=== PATIENT | female | born 1960 | race African-American/Black ===

== ENCOUNTER 2017-08-14 16:12 | Emergency (ER) | payer MEDICAID, OTHER ==
[~2017-08-14] VITALS: Ht 165.1 cm; Wt 75.0 kg
[2017-08-14] MEDS ORDERED: SODIUM CHLORIDE 0.9% 1,000 ML IV ONE (20:24)
[2017-08-14] MEDS ORDERED: KETOROLAC 30MG/ML VIAL IV ONE (20:30)
[2017-08-14 21:18] LABS: CLARITY URINE CLEAR (CLEAR); COLOR URINE YELLOW (YELLOW); KETONES URINE NEGATIVE (NEGATIVE); LEUKOCYTE ESTERASE URINE 2+ (NEGATIVE); NITRITE URINE NEGATIVE (NEGATIVE); OCCULT BLOOD URINE TRACE (NEGATIVE); PROTEIN URINE NEGATIVE (NEGATIVE); SPECIFIC GRAVITY URINE 1.012 (1.005-1.030)
[2017-08-14 21:21] LABS: HEMOGLOBIN. 11.1 g/dL (12.0-16.0); MEAN CORPUSCULAR HEMOGLOBIN 22.6 pg (28.0-32.0); MEAN CORPUSCULAR VOLUME 71.2 fL (81.0-99.0); MEAN PLATELET VOLUME 10.7 fl (7.4-10.4); PLATELET 146 x1000/uL (130-400); RED BLOOD CELL COUNT 4.91 mill/uL (4.2-5.4); RED CELL DISTRIBUTION WIDTH 12.6 % (11.6-14.6)
[2017-08-14 21:40] LABS: CARBON DIOXIDE 30 mEq/L (21-32); CHLORIDE 104 mEq/L (98-107)
[2017-08-14 21:57] LABS: ATYPICAL LYMPHOCYTES 2; PLATELET ESTIMATE NORMAL
[2017-08-14 23:08] LABS: INR 1.1; PROTHROMBIN TIME 11.4 sec (9.4-11.6)
[2017-08-15 00:53] VITALS: BP 135/76
== END 2017-08-15 01:36 | disposition home or self-care (01) ==
LOC: ER 16:42
DX: B34.9 Viral infection, unspecified (principal); N39.0 Urinary tract infection, site not specified; Z85.72 Personal history of non-Hodgkin lymphomas; Z90.49 Acquired absence of other specified parts of digestive tract; Z88.0 Allergy status to penicillin
CPT/HCPCS: 36415; 71045; 80053; 81001; 85025; 85610; 87804; 96361; 96374; 99285; J1885; J7030

== ENCOUNTER 2019-01-03 23:11 | Inpatient (IN) | payer MEDICAID ==
[~2019-01-03] VITALS: Ht 165.1 cm; Wt 74.4 kg
[2019-01-04] MEDS ORDERED: ONDANSETRON HCL 4MG/2ML INJ IV STA (00:15)
[2019-01-04] MEDS ORDERED: ASPIRIN 81MG TABLET PO ONE (00:15)
[2019-01-04] MEDS ORDERED: MORPHINE SULFATE 4 MG/ML CPJ (NOT FOR IM USE) IV STA (00:15)
[2019-01-04] MEDS ORDERED: NITROGLYCERIN OINT 1GM/INCH UDPKT TD ONE (00:15)
[2019-01-04 00:27] LABS: BASOPHILS % 0.6 % (0.0-2.0); EOSINOPHILS % 2.4 % (0.0-5.0); HEMATOCRIT. 33.3 % (36.0-48.0); HEMOGLOBIN. 10.9 g/dL (12.0-16.0); LYMPHOCYTES % 44.7 % (20.0-50.0); MEAN CORPUSCULAR HEMOGLOBIN 23.2 pg (28.0-32.0); MEAN CORPUSCULAR VOLUME 71.1 fL (81.0-99.0); MEAN PLATELET VOLUME 10.9 fl (7.4-10.4); MONOCYTES % 10.4 % (2.0-8.0); NEUTROPHILS % 41.9 % (40.0-76.0); PLATELET 164 x1000/uL (130-400); RED BLOOD CELL COUNT 4.68 mill/uL (4.2-5.4); RED CELL DISTRIBUTION WIDTH 12.5 % (11.6-14.6)
[2019-01-04 00:33] LABS: CHLORIDE 112 mEq/L (98-107)
[2019-01-04] MEDS ORDERED: IOHEXOL-350 100 ML BOTTLE ONE (02:07)
[2019-01-04 12:00] VITALS: BP 103/62
[2019-01-04 12:20] VITALS: BP 103/62
[2019-01-04] MEDS ORDERED: ATOR20TA65 PO (13:22)
[2019-01-04] MEDS ORDERED: NITR0.4T49 SL (13:23)
[2019-01-04 16:00] VITALS: BP 115/71
[2019-01-04] MEDS ORDERED: LORAZEPAM 0.5MG TABLET PO PRN (16:00)
[2019-01-04] MEDS ORDERED: IPRATROPIUM/ALBUTEROL 0.5-3(2.5)MG/3ML NEB INH PRN (16:00)
[2019-01-04] MEDS ORDERED: CLONIDINE 0.1MG TABLET PO PRN (16:00)
[2019-01-04] MEDS ORDERED: ONDANSETRON HCL 4MG/2ML INJ IV PRN (16:00)
[2019-01-04] MEDS ORDERED: DOCUSATE SODIUM 100MG CAPSULE PO PRN (16:00)
[2019-01-04] MEDS ORDERED: ACETAMINOPHEN 325MG TABLET PO PRN (16:00)
[2019-01-04] MEDS ORDERED: HYDROCODONE/ACETAMINOPHEN 5/325MG TABLET PO PRN (16:00)
[2019-01-04] MEDS ORDERED: POTASSIUM CHLORIDE 20MEQ TABLET SR PO NR (16:30)
[2019-01-04 20:00] VITALS: BP 100/60
[2019-01-04 20:58] LABS: TOTAL IRON BINDING CAPACITY 263 ug/dL (250-450)
[2019-01-04] MEDS ORDERED: ATORVASTATIN CALCIUM 20MG TABLET PO SCH (21:00)
[2019-01-04 21:01] LABS: CREATINE KINASE 63 IU/L (26-192)
[2019-01-04 21:02] LABS: CREATINE KINASE MB FRACTION < 1.0 ng/mL (0.5-3.6)
[2019-01-05] VITALS (11 sets, daily range): BP systolic 98–144; BP diastolic 47–91
[2019-01-05 07:35] LABS: CLARITY URINE CLOUDY (CLEAR); COLOR URINE YELLOW (YELLOW); KETONES URINE TRACE (NEGATIVE); LEUKOCYTE ESTERASE URINE TRACE (NEGATIVE); NITRITE URINE NEGATIVE (NEGATIVE); OCCULT BLOOD URINE TRACE (NEGATIVE); PROTEIN URINE NEGATIVE (NEGATIVE); SPECIFIC GRAVITY URINE 1.018 (1.005-1.030); UROBILINOGEN URINE 0.2 E.U./dL (0.2-1.0)
[2019-01-05 07:41] LABS: *AMPHETAMINES SCREEN URINE NEGATIVE (NEGATIVE); *BARBITURATES SCREEN URINE NEGATIVE (NEGATIVE); *BENZODIAZEPINES SCREEN URINE NEGATIVE (NEGATIVE); *COCAINE SCREEN URINE NEGATIVE (NEGATIVE); CANNABINOID URINE SCREEN NEGATIVE (NEGATIVE); METHADONE URINE SCREEN NEGATIVE (NEGATIVE); OPIATES URINE SCREEN NEGATIVE (NEGATIVE); PHENCYCLIDINE URINE SCREEN NEGATIVE (NEGATIVE)
[2019-01-05] MEDS ORDERED: REGADENOSON 0.4 MG/5 ML IV ONE ×2 (09:45→11:22)
[2019-01-05 10:09] LABS: BASOPHILS % 0.4 % (0.0-2.0); EOSINOPHILS % 2.7 % (0.0-5.0); HEMATOCRIT. 33.9 % (36.0-48.0); HEMOGLOBIN. 10.8 g/dL (12.0-16.0); LYMPHOCYTES % 38.9 % (20.0-50.0); MEAN CORPUSCULAR HEMOGLOBIN 22.9 pg (28.0-32.0); MEAN CORPUSCULAR VOLUME 71.8 fL (81.0-99.0); MEAN PLATELET VOLUME 10.9 fl (7.4-10.4); MONOCYTES % 8.7 % (2.0-8.0); NEUTROPHILS % 49.3 % (40.0-76.0); PLATELET 145 x1000/uL (130-400); RED BLOOD CELL COUNT 4.72 mill/uL (4.2-5.4); RED CELL DISTRIBUTION WIDTH 12.5 % (11.6-14.6)
[2019-01-05 10:15] LABS: CHLORIDE 107 mEq/L (98-107)
[2019-01-05] MEDS ORDERED: LIDOCAINE HCL 1% 20ML VIAL (Pyxis) INJ ONE (14:30)
[2019-01-05] MEDS ORDERED: IOHEXOL-300 100 ML BOTTLE ONE ×2 (14:30→14:56)
[2019-01-05] MEDS ORDERED: NITROGLYCERIN 50MCG/ML 10ML VIAL (CATH LAB) IV ONE (14:39)
[2019-01-05] MEDS ORDERED: HEPARIN SODIUM 1,000 UNIT/1ML VIAL IV ONE (14:39)
[2019-01-05] MEDS ORDERED: NICARDIPINE 100MCG/ML 10ML VIAL (CATH LAB) IV ONE (14:39)
[2019-01-05] MEDS ORDERED: ATROPINE SULFATE 0.1MG/ML 10ML DISP.SYRIN ONE (15:00)
[2019-01-05] MEDS ORDERED: IODIXANOL 320MG/ML 100 ML BOTTLE IV ONE (15:04)
[2019-01-05] MEDS ORDERED: CLOPIDOGREL 75MG TABLET ONE (15:16)
[2019-01-05] MEDS ORDERED: ASPIRIN 325MG EC TABLET PO ONE (15:21)
[2019-01-05] MEDS ORDERED: ATROPINE SULFATE 1MG/10ML SYR IV PRN (15:30)
[2019-01-05] MEDS ORDERED: ACETAMINOPHEN 325MG TABLET PO PRN (15:30)
[2019-01-05] MEDS ORDERED: ATORVASTATIN CALCIUM 40MG TABLET PO SCH (21:00)
[2019-01-05] MEDS: METOPROLOL TARTRATE 25MG TABLET PO SCH (21:05)
[2019-01-06] VITALS: BP 96/70
[2019-01-06 02:00] VITALS: BP 103/69
[2019-01-06 04:00] VITALS: BP 99/64
[2019-01-06 06:22] LABS: CHLORIDE 107 mEq/L (98-107)
[2019-01-06 06:28] LABS: BASOPHILS % 0.4 % (0.0-2.0); EOSINOPHILS % 2.2 % (0.0-5.0); HEMATOCRIT. 33.7 % (36.0-48.0); HEMOGLOBIN. 10.8 g/dL (12.0-16.0); LYMPHOCYTES % 38.5 % (20.0-50.0); MEAN CORPUSCULAR VOLUME 71.7 fL (81.0-99.0); MEAN PLATELET VOLUME 11.2 fl (7.4-10.4); NEUTROPHILS % 46.9 % (40.0-76.0); PLATELET 163 x1000/uL (130-400); RED CELL DISTRIBUTION WIDTH 12.8 % (11.6-14.6)
[2019-01-06 08:00] VITALS: BP 108/63
[2019-01-06] MEDS ORDERED: CLOPIDOGREL 75MG TABLET PO SCH (09:00)
[2019-01-06] MEDS ORDERED: ASPIRIN 325MG TABLET PO SCH (09:00)
[2019-01-06] MEDS: METOPROLOL TARTRATE 25MG TABLET PO SCH (09:12)
[2019-01-06] MEDS ORDERED: METO-385 MT (10:24)
[2019-01-06] MEDS ORDERED: CLOP75TA4 PO (10:24)
[2019-01-06] MEDS ORDERED: ASPI-986 PO (10:24)
[2019-01-06] MEDS ORDERED: LIP40 PO (10:24)
[2019-01-06 10:34] VITALS: BP 112/61
== END 2019-01-06 17:35 | disposition home or self-care (01) | DRG 175 ==
LOC: ER 23:11 → 5WST 01-04 02:40 → EDBEDREQ 01-04 02:43 → EDBEDREQTM 01-04 02:43 → ENRESERV 01-04 09:30 → 5WST 01-04 10:26 → 3WST 01-05 16:29
PROVIDERS: ADMIT Internal Medicine; ATTEND Internal Medicine
PROC: 4A023N7 Measurement of Cardiac Sampling and Pressure, Left Heart, Percutaneous Approach (ICD-10-PCS; principal; 2019-01-05)
PROC: 027034Z Dilation of Coronary Artery, One Artery with Drug-eluting Intraluminal Device, Percutaneous Approach (ICD-10-PCS; 2019-01-05)
PROC: B2111ZZ Fluoroscopy of Multiple Coronary Arteries using Low Osmolar Contrast (ICD-10-PCS; 2019-01-05)
PROC: B2151ZZ Fluoroscopy of Left Heart using Low Osmolar Contrast (ICD-10-PCS; 2019-01-05)
DX: I25.119 Atherosclerotic heart disease of native coronary artery with unspecified angina pectoris (principal); E87.8 Other disorders of electrolyte and fluid balance, not elsewhere classified; K76.89 Other specified diseases of liver; D50.9 Iron deficiency anemia, unspecified; D72.821 Monocytosis (symptomatic); E78.00 Pure hypercholesterolemia, unspecified; I10 Essential (primary) hypertension; R74.8 Abnormal levels of other serum enzymes; E87.6 Hypokalemia; R05 Cough; G43.909 Migraine, unspecified, not intractable, without status migrainosus; Z88.0 Allergy status to penicillin; Z85.72 Personal history of non-Hodgkin lymphomas; Z90.49 Acquired absence of other specified parts of digestive tract; Z92.21 Personal history of antineoplastic chemotherapy; Z95.5 Presence of coronary angioplasty implant and graft; Z85.71 Personal history of Hodgkin lymphoma
CPT/HCPCS: 36415; 71045; 71275; 78452; 80048; 80305; 82550; 82553; 82728; 83036; 83540; 83550; 83880; 84443; 84484; 85347; 92928; 93005; 93017; 93458; 96374; 96375; 99285; A9500; C1725; C1769; C1874; C1887; C1893; J0461; J1644; J2270; J2405; J2785; J3490; Q9967